=== PATIENT | male | born 1945 | race Caucasian/White ===

== ENCOUNTER 2024-07-07 14:07 | Emergency (ER) | payer MEDICARE ==
[2024-07-07] MEDS: Lidocaine 1% 20 ML MDV INJECT ONE (17:18)
== END 2024-07-07 17:17 | disposition home or self-care (01) ==
LOC: JP.ED 14:07
DX: L02.212 Cutaneous abscess of back [any part, except buttock and flank] (principal); L03.312 Cellulitis of back [any part except buttock and flank]; Z79.82 Long term (current) use of aspirin; Z88.5 Allergy status to narcotic agent; Z88.6 Allergy status to analgesic agent; Z88.8 Allergy status to other drugs, medicaments and biological substances; Z91.040 Latex allergy status
CPT/HCPCS: 10060; 10061; 87070; 87205; 99283; 99284-25